=== PATIENT | male | born 1960 | race Caucasian/White ===

== ENCOUNTER 2020-06-13 14:31 | Emergency (ER) | payer BC, SELFPAY ==
[2020-06-13 15:23] LABS: Absolute Lymphocytes (CBC) 1.5 K/uL (0.7-4.9); Basophils % 0.6 % (0-1.3); Hematocrit 45.5 % (39.6-49.0); Lymphocytes % 14.9 % (15.3-44.8); MPV 7.8 fL (7.6-11.3); RBC Red Blood Cell Count 5.21 M/uL (4.33-5.43)
[2020-06-13 15:38] LABS: Protime INR 1.02
[2020-06-13 15:44] LABS: ALT/SGPT 36 U/L (12-78); AST/SGOT 20 U/L (15-37); Albumin 3.8 g/dL (3.4-5.0); Alkaline Phosphatase 111 U/L (45-117); BUN Blood Urea Nitrogen 17 mg/dL (7-18); Bicarbonate 29 mmol/L (21-32); Bilirubin Direct < 0.1 mg/dL (0-0.2); Bilirubin Total 0.4 mg/dL (0.2-1.0); Glucose Level 112 mg/dL (74-106); Magnesium 2.2 mg/dL (1.8-2.4); NT PRO-BNP 340 pg/mL (<125); Potassium 3.8 mmol/L (3.5-5.1); Protein, Total 7.7 g/dL (6.4-8.2); Sodium Level 137 mmol/L (136-145); Troponin (Emerg Dept Use Only) < 0.02 ng/mL (0.0-0.045)
--- NOTE | 2020-06-13 16:30 | RAD REPORT ---
EXAM DESCRIPTION: RAD - Chest Single View - 06/13/2020 4:15 pm CLINICAL HISTORY: syncope TECHNIQUE: AP portable chest image was obtained 06/13/2020 4:15 pm . FINDINGS: Lungs are clear. Heart and vasculature are normal. No measurable pleural effusion and no p neumothorax. No acute bony abnormality seen. No acute aortic findings suspected. IMPRESSION: No acute cardiopulmonary process.
--- NOTE | 2020-06-13 17:19 | ER ---
Nurse's Notes [facility] Name: Alessandro Judge II Age: 59 yrs Sex: Male : 1960 Arrival Date: 06/13/2020 Time: 14:47 Bed 20 Private MD: Diagnosis: Syncope and collapse Presentation: 06/13 14:48 Chief complaint: EMS states: Pt was sitting at work and started feeling bad, co-workers jl7 reported he looked pale, no LOC, vitals WNL, BGL 112. Coronavirus screen: Client denies travel out of the [place] in the last 14 days. At this time, the client does not indicate any symptoms associated with coronavirus-19. Ebola Screen: No symptoms or risks identified at this time. Initial Sepsis Screen: Does the patient meet any 2 criteria? No. Patient's initial sepsis screen is negative. Does the patient have a suspected source of infection? No. Patient's initial sepsis screen is negative. Risk Assessment: Do you want to hurt yourself or someone else? Patient reports no desire to harm self or others. Onset of symptoms was June 13, 2020. Care prior to arrival: Glucose check: 112. 14:48 Method Of Arrival: EMS: [facility] jl7 14:48 Acuity: ZAYRA 3 jl7 Triage Assessment: 14:51 General: Appears in no apparent distress. uncomfortable, Behavior is calm, cooperative, jl7 appropriate for age. Pain: Denies pain. Neuro: Level of Consciousness is awake, alert, obeys commands, Oriented to person, place, time, situation, Moves all extremities. Full function Speech is normal, Facial symmetry appears normal. Cardiovascular: Denies chest pain, Patient's skin is warm and dry. Respiratory: Airway is patent Respiratory effort is even, unlabored, Respiratory pattern is regular, symmetrical, Denies shortness of breath. GI: Patient currently denies diarrhea, nausea, vomiting. Derm: Skin is pink, warm \T\ dry. Historical: - Allergies: 14:51 No Known Allergies; jl7 - Home Meds: 14:51 None [Active]; jl7 - PMHx: 14:51 None; jl7 - PSHx: 14:51 None; jl7 - Immunization history:: Adult Immunizations unknown. - Social history:: Smoking status: Patient denies any tobacco usage or history of. Screenin:00 Abuse screen: Denies threats or abuse. Denies injuries from another. Nutritional [facility] screening: No deficits noted. Tuberculosis screening: No symptoms or risk factors identified. Fall Risk IV access (20 points). Total Metcalf Fall Scale indicates No Risk (0-24 pts). Assessment: 15:00 General: See triage assessment. jl7 16:06 Reassessment: Patient appears in no apparent distress at this time. No changes from [facility] previously documented assessment. Patient and/or family updated on plan of care and expected duration. Pain level reassessed. Patient is alert, oriented x 3, equal unlabored respirations, skin warm/dry/pink. 17:00 Reassessment: Patient appears in no apparent distress at this time. No changes from [facility] previously documented assessment. Patient and/or family updated on plan of care and expected duration. Pain level reassessed. Patient is alert, oriented x 3, equal unlabored respirations, skin warm/dry/pink. Vital Signs: 14:48 BP 152 / 74; Pulse 58; Resp 14; Temp 97.8; Pulse Ox 99% on R/A; Weight 72.57 kg; Height jl7 5 ft. 7 in. (170.18 cm); Pain 0/10; 15:33 BP 127 / 85; Pulse 58; Resp 17; Pulse Ox 99% ; Pain 0/10; jl7 16:05 BP 130 / 75; Pulse 74; Resp 15; Pulse Ox 100% ; jl7 17:00 BP 148 / 73; Pulse 55; Resp 17 S; Pulse Ox 100% on R/A; jl7 14:48 Body Mass Index 25.06 (72.57 kg, 170.18 cm) [facility] ED Course: 14:47 Patient arrived in ED. [facility] 14:47 David Barillas PA is PHCP. [facility] 14:47 Darrell Richardson MD is Attending Physician. [facility] 14:47 Imelda Mendez, RACHANA is Primary Nurse. [facility] 14:51 Triage completed. 7 14:51 Arm band placed on right wrist. 7 15:00 Patient has correct armband on for positive identification. Placed in gown. Bed in low jl position. Call light in reach. Side rails up X2. belt cleaner on. Pulse ox on. NIBP on. 15:15 Initial lab(s) drawn, by co, sent to lab. EKG done, by ED staff, reviewed by David TEJEDA. Maintain EMS IV. Dressing intact. Good blood return noted. Site clean \T\ dry. Gauge \T\ site: 20 left ac. 16:15 XRAY Chest (1 view) In Process Unspecified. EDMS 16:51 Basic Metabolic Panel Sent. jl7 16:51 CBC with Diff Sent. jl7 16:51 LFT's Sent. jl7 17:46 No provider procedures requiring assistance completed. IV discontinued, intact, jl7 bleeding controlled, No redness/swelling at site. Pressure dressing applied. Administered Medications: No medications were administered Outcome: 17:18 Discharge ordered by . joselyn 17:46 Discharged to home ambulatory. jl7 17:46 Condition: stable 17:46 Discharge instructions given to patient, Instructed on discharge instructions, follow up and referral plans. Demonstrated understanding of instructions, follow-up care. 17:46 Patient left the ED. katty Signatures: Dispatcher [employer] David Hoff PA PA jmm Leal, Jahala, RN RN katty
--- NOTE | 2020-06-13 17:19 | EDPHYS ---
Physician Documentation [facility] Name: Alessandro Judge II Age: 59 yrs Sex: Male : 1960 Arrival Date: 06/13/2020 Time: 14:47 Bed 20 Private MD: ED Physician Darrell Richardson HPI: 06/13 15:03 This 59 yrs old Male presents to ER via EMS with complaints of Near Syncope. jmm 15:03 The patient has experienced near-syncope. Onset: The symptoms/episode began/occurred jm acutely, just prior to arrival. Duration: This was a single episode. Context: the episode(s) was witnessed, by co-worker(s). Associated injury: The patient did not suffer any apparent associated injury. Associated signs and symptoms: Pertinent negatives: chest pain, shortness of breath. Current symptoms: resolved. The patient has not experienced similar symptoms in the past. This is a 59 year old male with no chronic medical conditions that presents to the ED with no chronic medical conditions that presents to the ED with complaints of near syncope. patient atributes this to drinking too many energy drinks. Patient denies sob, chest pain. . Historical: - Allergies: 14:51 No Known Allergies; jl7 - Home Meds: 14:51 None [Active]; jl7 - PMHx: 14:51 None; jl7 - PSHx: 14:51 None; jl7 - Immunization history:: Adult Immunizations unknown. - Social history:: Smoking status: Patient denies any tobacco usage or history of. ROS: 15:03 Constitutional: Negative for fever, chills, and weight loss, Cardiovascular: Negative jmm for chest pain, palpitations, and edema, Respiratory: Negative for shortness of breath, cough, wheezing, and pleuritic chest pain. 15:03 Neuro: Positive for near syncope. 15:03 All other systems are negative. Exam: 15:03 Constitutional: This is a well developed, well nourished patient who is awake, alert, jmm and in no acute distress. Head/Face: atraumatic. Eyes: EOMI, no conjunctival erythema appreciated ENT: Moist Mucus Membranes Neck: Trachea midline, Supple Chest/axilla: Normal chest wall appearance and motion. Cardiovascular: Regular rate and rhythm. No edema appreciated Respiratory: Normal respirations, no respiratory distress appreciated Abdomen/GI: Non distended, soft Back: Normal ROM Skin: General appearance color normal MS/ Extremity: Moves all extremities, no obvious deformities appreciated, no edema noted to the lower extremities Neuro: Awake and alert, normal gait Psych: Behavior is normal, Mood is normal, Patient is cooperative and pleasant Vital Signs: 14:48 BP 152 / 74; Pulse 58; Resp 14; Temp 97.8; Pulse Ox 99% on R/A; Weight 72.57 kg; Height jl7 5 ft. 7 in. (170.18 cm); Pain 0/10; 15:33 BP 127 / 85; Pulse 58; Resp 17; Pulse Ox 99% ; Pain 0/10; jl7 16:05 BP 130 / 75; Pulse 74; Resp 15; Pulse Ox 100% ; jl7 17:00 BP 148 / 73; Pulse 55; Resp 17 S; Pulse Ox 100% on R/A; jl7 14:48 Body Mass Index 25.06 (72.57 kg, 170.18 cm) 7 MDM: 14:47 Patient medically screened. [facility] 17:16 Data reviewed: vital signs, nurses notes. Counseling: I had a detailed discussion with joselyn the patient and/or guardian regarding: the historical points, exam findings, and any diagnostic results supporting the discharge/admit diagnosis, lab results, radiology results, the need for outpatient follow up, to return to the emergency department if symptoms worsen or persist or if there are any questions or concerns that arise at home. ED course: Patient is alert and non toxic in appearance in the ED. [place] syncope rules negative. Patient is advised to follow up with cardiology for further evaluation. patient understood and agrees with the plan of care. . 06/13 14:48 Order name: Basic Metabolic Panel [facility] 06/13 14:48 Order name: CBC with Diff [facility] 06/13 14:48 Order name: LFT's [facility] 06/13 14:48 Order name: Magnesium; Complete Time: 15:46 [facility] 06/13 14:48 Order name: NT PRO-BNP; Complete Time: 15:46 [facility] 06/13 14:48 Order name: PT-INR; Complete Time: 15:50 [facility] 06/13 14:48 Order name: Troponin (emerg Dept Use Only); Complete Time: 15:46 [facility] 06/13 14:48 Order name: XRAY Chest (1 view); Complete Time: 16:31 [facility] 06/13 14:48 Order name: EKG; Complete Time: 14:49 [facility] 06/13 14:48 Order name: Cardiac monitoring; Complete Time: 15:30 [facility] 06/13 14:48 Order name: D-Dimer; Complete Time: 15:50 [facility] 06/13 14:48 Order name: Basic Metabolic Panel; Complete Time: 15:46 [facility] 06/13 14:48 Order name: CBC with Automated Diff; Complete Time: 15:50 [facility] 06/13 14:48 Order name: Liver (Hepatic) Function; Complete Time: 15:46 [facility] 06/13 14:48 Order name: EKG - Nurse/Tech; Complete Time: 15:18 [facility] 06/13 14:48 Order name: IV Saline Lock; Complete Time: 15:18 [facility] 06/13 14:48 Order name: Labs collected and sent; Complete Time: 15:18 [facility] 06/13 14:48 Order name: O2 Per Protocol; Complete Time: 15:18 [facility] 06/13 14:48 Order name: O2 Sat Monitoring; Complete Time: 15:18 [facility] Administered Medications: No medications were administered Disposition: 18:02 Co-signature as Attending Physician, Darrell Richardson MD. rn Disposition: 06/13/20 17:18 Discharged to Home. Impression: Syncope and collapse. - Condition is Stable. - Discharge Instructions: Syncope. - Medication Reconciliation Form, Thank You Letter, Antibiotic Education, Prescription Opioid Use, Work release form form. - Follow up: Private Physician; When: 2 - 3 days; Reason: Recheck today's complaints, Continuance of care, Re-evaluation by your physician. Signatures: Dispatcher [employer] [facility] David Barillas PA PA jmm Nieto, Roman, MD MD rn Leal, Jahala, RN RN jl7 Corrections: (The following items were deleted from the chart) 17:46 17:18 06/13/2020 17:18 Discharged to Home. Impression: Syncope and collapse. Condition jl7 is Stable. Forms are Medication Reconciliation Form, Thank You Letter, Antibiotic Education, Prescription Opioid Use. Follow up: Private Physician; When: 2 - 3 days; Reason: Recheck today's complaints, Continuance of care, Re-evaluation by your physician. joselyn
--- NOTE | 2020-06-14 08:51 | EKG ---
Test Date: 2020-06-13 Test Time: 15:07:00 [employer]: CESAR MEASUREMENT RESULTS: Intervals: Rate: 64 VT: 142 QRSD: 100 QT: 416 QTc: 429 [place]: P: 63 VT: 142 QRS: 88 T: 85 INTERPRETIVE STATEMENTS: Normal sinus rhythm Nonspecific T wave abnormality Abnormal ECG Compared to ECG 08/23/2004 09:56:00 T-wave abnormality now present Sinus arrhythmia no longer present Right-axis deviation no longer present Electronically Signed On 06-14-20 08:48:40 CDT by Edwardo Douglass
== END 2020-06-13 17:46 | disposition home or self-care (01) ==
LOC: ER 14:31
DX: R55 Syncope and collapse (principal)
CPT/HCPCS: 36415; 71045; 80048; 80076; 83735; 83880; 84484; 85025; 85379; 85610; 93005; 99284